=== PATIENT | male | born 2000 | race Caucasian/White ===

== ENCOUNTER → 2023-03-08 | Outpatient (CLI) | payer OTHER, SELFPAY ==
[2023-03-08 17:11] LABS: Bilirubin, Direct 0.34 mg/dL (0.00-0.30); Ferritin 88 ng/mL (26-388)
[2023-03-10 12:09] LABS: ANTINUCLEAR ANTIBODIES DIRECT Negative (Negative)
[2023-03-10 15:08] LABS: CMV Acute Antibody IgM < 30.0 AU/mL (0.0-29.9); EBV Acute VCA IgM < 36.0 U/mL (0.0-35.9); EBV-VCA IgG < 18.0 U/mL (0.0-17.9); Mycoplasma Pneum AB IgG 444 U/mL (0-99)
== END | disposition home or self-care (01) ==
PROVIDERS: PCP Pediatrics
DX: R53.82 Chronic fatigue, unspecified (principal); R06.02 Shortness of breath; E80.6 Other disorders of bilirubin metabolism
CPT/HCPCS: 82247; 82248; 82728; 86038; 86225; 86235; 86644; 86645; 86665; 86738

== ENCOUNTER → 2023-04-17 | Outpatient (CLI) | payer OTHER, SELFPAY ==
[2023-04-17 16:50] LABS: ALB/GLOB Ratio 1.1 RATIO (0.9-2.4); AST(SGOT) 26 U/L (15-37); Alanine Aminotransfer ALT/SGPT 37 U/L (16-61); Albumin, Serum 4.1 g/dL (3.2-5.0); Alkaline Phosphatase 37 U/L (45-117); Anion Gap 6 (5-15); BUN 10 mg/dL (7-18); BUN/Creat Ratio 8.8 RATIO (10-20); Calcium,Total 9.1 mg/dL (8.5-10.1); Chloride 105 mmol/L (98-107); Creatinine, Serum 1.14 mg/dL (0.70-1.30); EST Glomerular Filtration Rate 86 mL/min (>60); Est Glom Filt Rate - Afr Amer 104 mL/min (>60); Globulin 3.7 g/dL (2.2-4.2); Glucose 90 mg/dL (74-106); Potassium 3.9 mmol/L (3.5-5.1); Protein, Total 7.8 g/dL (6.4-8.2); Sodium Level 140 mmol/L (136-145)
[2023-04-27 16:10] LABS: Copper, Serum or Plasma 115 ug/dL (63-121); Folate, RBC (Hct) Test 48.2 % (37.5-51.0); Folates, RBC Test 869 ng/mL (>498); Testosterone, % Free 3.73 % (1.50-4.20); Testosterone, Free 16.45 ng/dL (5.00-21.00); Testosterone, Total 441 ng/dL (264-916); West Nile Virus, IgG Negative (Negative); West Nile Virus, IgM Negative (Negative); Zinc, Plasma or Serum 81 ug/dL (44-115)
== END | disposition home or self-care (01) ==
DX: B25.9 Cytomegaloviral disease, unspecified (principal); R53.82 Chronic fatigue, unspecified; R06.02 Shortness of breath; E80.6 Other disorders of bilirubin metabolism
CPT/HCPCS: 36415; 80053; 82525; 82747; 84402; 84403; 84630; 85014; 86160; 86658; 86788; 86789; 87497

== ENCOUNTER → 2023-05-18 | Outpatient (CLI) | payer OTHER, SELFPAY ==
[2023-05-18 17:03] LABS: Vitamin B12 738 pg/mL (211-911)
[2023-05-23 12:07] LABS: ANTINUCLEAR ANTIBODIES DIRECT Negative (Negative)
== END | disposition home or self-care (01) ==
PROVIDERS: PCP Nurse Practitioner Family; Visit Provider Nurse Practitioner Family
DX: A69.20 Lyme disease, unspecified (principal); R53.82 Chronic fatigue, unspecified; R06.02 Shortness of breath; E80.6 Other disorders of bilirubin metabolism; R00.2 Palpitations; R51.9 Headache, unspecified
CPT/HCPCS: 36415; 82607; 86038; 86225; 86235; 87497

== ENCOUNTER 2024-01-30 20:30 | Emergency (ER) | payer OTHER, SELFPAY ==
[2024-01-30 20:31] VITALS: BP 117/68; PULSE 78; RESP 16; TEMP 36.2; O2SAT 97; BMI 23.8
--- NOTE | 2024-01-30 20:56 | EDS_ITS ---
HPI History of Present Illness Chief Complaint: Laceration PFSH PFS Home Medications ?Medication ?Instructions ?Recorded ?Last Taken ?Type cephalexin 500 mg capsule 500 mg PO TID 3 days #9 caps 01/30/24 Unknown Rx Allergy/AdvReac Type Severity Reaction Status Date / Time No Known Allergies Allergy Verified 01/30/24 20:31 Social History Smoking Status: Never smoker EXAM Physical Exam Const Vital Signs: 01/30/24 20:31 01/30/24 22:23 Temperature 97.1 F L 98 F Temperature Source Temporal Pulse Rate 78 62 Respiratory Rate 16 18 Blood Pressure 117/68 129/74 H Blood Pressure Mean 84 92 Pulse Ox 97 100 Oxygen Delivery Method Room Air [facility] Narrative Medical decision making narrative: HISTORY OF PRESENT ILLNESS: 24-year-old male presents with concern for laceration of right hand while cleaning a knife. Not up-to-date tetanus REVIEW OF SYSTEMS: Pertinent positives: Right hand pain Pertinent negatives: Numbness tingling loss of sensation PHYSICAL EXAM: Nursing triage notes reviewed, Vital signs reviewed Constitutional: please see mdm Extremities: No edema Neuro: Intact 5/5 strength with ok sign (median), intact finger abduction (ulnar) intact wrist extension (radial n). Intact sensation in the radial, ulnar, and median nerve distributions. Skin: Approximately 2 cm linear laceration noted to the second metacarpal phalangeal joint of the right hand MEDICAL DECISION MAKING: Chief Complaint: Laceration External records reviewed: Prior immunizations reviewed Consults: none [facility] Narrative: The patient suffered lacerations to the right dorsal surface of the second digit On exam there was no evidence of foreign bodies. There was no evidence of neurovascular injury. Patient had a normal distal vascular exam, and had intact ROM and sensation. There was also no evidence of tendon injury, with normal distal full range of motion, flexion, extension, abduction, abduction. There is no evidence of local joint space involvement at this time. Wound care applied (irrigation and/or local cleansing solution). Laceration repair was then performed please see procedure note. The patient was given signs and symptoms warnings for infection, such as increasing pain, redness, swelling, associated heat, pus or fever. Patient was given instructions for timely follow-up for removal. Patient agreed with the plan of care Procedure: Laceration repair. The procedure was performed by myself. Indication: Wound repair Risks and benefits: risks, benefits and alternatives were discussed Consent: Consent was obtained. Wound Details: As per HPI, approximately 2 cm in length, 1 mm in depth, no foreign bodies, no obvious tendinous involvement. Anesthesia: Topical let, 1% lidocaine inserted into the wound margins (verbal consent obtained from patient). Wound prep: Patient was prepped and draped in the usual sterile fashion. Tetanus: Updated today Irrigation Solution: Saline Wound Preparation: Clean with clear Exidine and peroxide. The wound was explored to its base in a bloodless field. Procedure Description: Applied 5 5-0 Chromic Gut sutures with close approximation. Patient tolerated the procedure well with no immediate complications The patient and/or family, caregivers express understanding. The patient and/or family, caregivers agrees with the plan. Shared decision making: I will have a discussion with the patient and or visitors regarding risk/benefits of further testing or admission. They will be made aware of of the risk/benefits inherent in this decision they will be given the opportunity to voice understanding. Total critical care time today provided was at least 0 minutes. This excludes separately billable procedures. Critical care time (if documented) is secondary to the patient having high probability of clinically significant/life threatening deterioration in the patient's condition which required my urgent intervention. Impression: 1. Finger laceration 2. Finger pain Dispo: Discharge home This note was generated with [employer] dictation software. It may contain incorrect words, spelling, and punctuation that were not noted in review of the chart prior to signing. Discharge Plan Triage Chief Complaint: Laceration ED Provider: Derrick Zhou Dx/Rx/DC Orders Instructions: ED Laceration Extremity Prescriptions: New cephalexin 500 mg capsule 500 mg PO TID 3 Days Qty: 9 0RF Primary Care Provider: Care Physician,No Primary Referrals: Jean Romo MD [Med Staff - Specialty Person] - Activity Restrictions/Additional Instructions: Thank you for trusting us with your care today! Please take Tylenol (2 pills, 650 mg), ibuprofen (2 pills, 400 mg) every 6 hours as needed for pain and fever control. Please take antibiotic until course complete. Please return to the emergency department if your symptoms change or worsen. Specific if you see signs of infection which include redness, white-yellow discharge, increasing pain, fevers. These have develop please return to the ED immediately Please follow with your primary care physician for further outpatient evaluation and management. Print Language: Swedish Disposition Disposition: Home, Self Care Discharge Date/Time: 01/30/24 22:25
[2024-01-30] MEDS: Lidocaine 1% (20 ml mdv) 20 ML Vial 5 ML INFILT (21:06)
[2024-01-30] MEDS: Lidocaine/Epi/Tetracaine 50 ML 1 APPLIC TOPICAL (21:06)
[2024-01-30] MEDS: Diphth,Pertuss(Acell),Tet Vac 0.5 ML Vial IM (21:27)
[2024-01-30 22:23] VITALS: BP 129/74; PULSE 62; RESP 18; TEMP 36.6; O2SAT 100
== END 2024-01-30 22:25 | disposition home or self-care (01) ==
PROVIDERS: Emergency Provider Emergency Medicine; Visit Provider Emergency Medicine
DX: S61.219A Laceration without foreign body of unspecified finger without damage to nail, initial encounter (principal); M79.646 Pain in unspecified finger(s); X58.XXXA Exposure to other specified factors, initial encounter
CPT/HCPCS: 12001; 90715; 99282